=== PATIENT | female | born 1960 | race Caucasian/White ===

== ENCOUNTER 2021-07-23 13:07 | Emergency (ER) | payer SELFPAY ==
[~2021-07-23] VITALS: Ht 165.1 cm; Wt 86.4 kg
[2021-07-23 13:18] VITALS: BP 146/70; PULSE 80; TEMP 97.9
[2021-07-23] MEDS ORDERED: LAMICTAL 100MG100 MG PO (13:36)
[2021-07-23] MEDS ORDERED: EFFEXOR-XR150 MG PO (13:36)
[2021-07-23] MEDS ORDERED: EFFEXOR XR37.5 MG/CA PO (13:36)
== END 2021-07-23 13:48 | disposition home or self-care (01) ==
LOC: COL.ER 13:07
DX: F41.9 Anxiety disorder, unspecified (principal)